=== PATIENT | male | born 1955 | race African-American/Black ===

== ENCOUNTER 2023-12-11 11:46 | Inpatient (IN) | payer MEDICARE ==
[~2023-12-11] VITALS: Ht 180.3 cm; Wt 63.5 kg
[~2023-12-11 11:46] MED LIST: AMLO10TA80 PO; APIX5TAB PO; ATOR10TA69 PO; CEPH250T MT; DOXY150T5 MT; HYDR-4135 PO; LOSA100T33 PO; SEVE800T8 PO
[2023-12-11] MEDS ORDERED: ALBUTEROL (0.083%) 2.5MG/3ML NEB HHN STA (12:07)
[2023-12-11] MEDS ORDERED: IPRATROPIUM BROMIDE (0.02%) 0.5MG/2.5ML NEB HHN STA (12:07)
[2023-12-11] MEDS ORDERED: PREDNISONE 20MG TABLET PO STA (12:07)
[2023-12-11] MEDS ORDERED: MAGNESIUM 2 G PREMIX 50 ML IV ONE (12:15)
[2023-12-11 13:02] LABS: HEMATOCRIT. 29.1 % (42.0-52.0); HEMOGLOBIN. 9.3 g/dL (14.0-18.0); MEAN CORPUSCULAR HEMOGLOBIN 29.3 pg (28.0-32.0); MEAN CORPUSCULAR VOLUME 91.7 fL (80.0-94.0); MEAN PLATELET VOLUME 8.2 fl (7.4-10.4); PLATELET 219 x1000/uL (130-400); RED BLOOD CELL COUNT 3.17 mill/uL (4.7-6.1); RED CELL DISTRIBUTION WIDTH 21.9 % (11.6-14.6); WHITE BLOOD COUNT 11.3 x1000/uL (4.5-11.0)
[2023-12-11 13:03] LABS: DIFFERENTIAL COMMENT 1
[2023-12-11 13:16] LABS: ALANINE AMINOTRANSFERASE 13 IU/L (10-49); ALBUMIN 3.3 g/dL (3.2-4.8); ASPARTATE AMINOTRANSFERASE 30 IU/L (<34); BILIRUBIN TOTAL 0.5 mg/dL (0.1-1.0); CALCIUM 9.5 mg/dL (8.7-10.4); CARBON DIOXIDE 31 mEq/L (21-32); CHLORIDE 92 mEq/L (98-107); GLUCOSE 122 mg/dL (70-105); POTASSIUM 3.7 mEq/L (3.5-5.1); PROTEIN TOTAL 6.9 g/dL (6.0-8.3); SODIUM 132 mEq/L (136-145); UREA NITROGEN BLOOD 30 mg/dL (9-23)
[2023-12-11 13:22] LABS: CREATININE 4.6 mg/dL (0.6-1.3)
[2023-12-11 13:23] LABS: TROPONIN I HIGH SENSITIVITY 101 ng/L (3.0-53)
[2023-12-11] MEDS ORDERED: AZITHROMYCIN 500MG/250ML 250 ML IV SCH (13:45)
[2023-12-11] MEDS ORDERED: CEFTRIAXONE 1GM PREMIX 50 ML IV ONE (13:45)
[2023-12-11 14:43] LABS: ANISOCYTOSIS 3+; PLATELET ESTIMATE NORMAL
[2023-12-11 15:48] LABS: TROPONIN I HIGH SENSITIVITY 113 ng/L (3.0-53)
[2023-12-11] MEDS ORDERED: MAGNESIUM/ALUMINUM HYDROXIDE/SIMETHICONE 30ML UDC PO PRN (17:30)
[2023-12-11] MEDS ORDERED: ONDANSETRON HCL 4MG/2ML INJ IV PRN (17:30)
[2023-12-11] MEDS ORDERED: GUAIFENESIN 200MG/10ML SUGAR FREE UDC PO PRN (17:30)
[2023-12-11] MEDS ORDERED: IPRATROPIUM/ALBUTEROL 0.5-3(2.5)MG/3ML NEB HHN PRN (17:30)
[2023-12-11] MEDS ORDERED: ACETAMINOPHEN 325MG TABLET PO PRN ×2 (17:30)
[2023-12-11] MEDS ORDERED: CLONIDINE 0.1MG TABLET PO PRN (17:30)
[2023-12-11] MEDS ORDERED: DOCUSATE SODIUM 100MG CAPSULE PO PRN (17:30)
[2023-12-11 19:00] VITALS: BP 156/78; PULSE 72; RESP 18; TEMP 97.7
[2023-12-11 20:00] VITALS: BP 168/75; PULSE 83; RESP 18; TEMP 97.7
[2023-12-12] VITALS (13 sets, daily range): BP systolic 98–175; BP diastolic 46–90; PULSE 78–99; RESP 18–22; TEMP 96.8–97.9
[2023-12-12] MEDS ORDERED: FOLI0.4T6 MT (05:57)
[2023-12-12 06:23] LABS: BASOPHILS % 0.1 % (0.0-2.0); DIFFERENTIAL COMMENT 0; HEMATOCRIT. 26.6 % (42.0-52.0); LYMPHOCYTES % 7.7 % (20.0-50.0); MEAN CORPUSCULAR HEMOGLOBIN 29.8 pg (28.0-32.0); MEAN CORPUSCULAR HGB CONC 33.8 g/dL (31.0-37.0); MEAN CORPUSCULAR VOLUME 88.1 fL (80.0-94.0); MONOCYTES % 5.1 % (2.0-8.0); NEUTROPHILS % 87.1 % (40.0-76.0); PLATELET 222 x1000/uL (130-400); RED BLOOD CELL COUNT 3.02 mill/uL (4.7-6.1); RED CELL DISTRIBUTION WIDTH 21.4 % (11.6-14.6); WHITE BLOOD COUNT 8.9 x1000/uL (4.5-11.0)
[2023-12-12 06:46] LABS: CREATINE KINASE MB FRACTION 3.6 ng/mL (0.5-3.6)
[2023-12-12] MEDS: TAMSULOSIN HCL 0.4MG SR CAPSULE PO SCH (10:11)
[2023-12-12] MEDS: APIXABAN 5 MG TABLET PO SCH ×2 (10:11→17:48)
[2023-12-12] MEDS: SEVELAMER CARBONATE 800 MG TABLET PO SCH ×3 (10:11→17:48)
[2023-12-12] MEDS: METOPROLOL SUCCINATE 50MG ER TABLET PO SCH (10:11)
[2023-12-12] MEDS: AMLODIPINE 10MG TABLET PO SCH (10:12)
[2023-12-12 11:53] LABS: ALANINE AMINOTRANSFERASE 14 IU/L (10-49); ALBUMIN 3.6 g/dL (3.2-4.8); ASPARTATE AMINOTRANSFERASE 28 IU/L (<34); BILIRUBIN TOTAL 0.5 mg/dL (0.1-1.0); CALCIUM 10.1 mg/dL (8.7-10.4); CARBON DIOXIDE 26 mEq/L (21-32); CHLORIDE 91 mEq/L (98-107); CHOLESTEROL 110 mg/dL (<200); GLUCOSE 103 mg/dL (70-105); HDL CHOLESTEROL 72 mg/dL (>55); LDL CHOLESTEROL 27 mg/dL (5-100); PHOSPHORUS 4.5 mg/dL (2.5-4.9); POTASSIUM 4.2 mEq/L (3.5-5.1); PROTEIN TOTAL 6.8 g/dL (6.0-8.3); SODIUM 131 mEq/L (136-145); THYROID STIMULATING HORMONE 1.73 uIU/mL (0.55-4.78); TRIGLYCERIDE 36 mg/dL (0-150); UREA NITROGEN BLOOD 34 mg/dL (9-23)
[2023-12-12 11:55] LABS: CREATININE 5.1 mg/dL (0.6-1.3)
[2023-12-12 13:28] LABS: BASOPHILS % 0.3 % (0.0-2.0); HEMATOCRIT. 29.8 % (42.0-52.0); HEMOGLOBIN. 9.6 g/dL (14.0-18.0); LYMPHOCYTES % 10.5 % (20.0-50.0); MEAN CORPUSCULAR HGB CONC 32.2 g/dL (31.0-37.0); MEAN CORPUSCULAR VOLUME 90.1 fL (80.0-94.0); MEAN PLATELET VOLUME 8.1 fl (7.4-10.4); MONOCYTES % 7.8 % (2.0-8.0); NEUTROPHILS % 81.4 % (40.0-76.0); PLATELET 221 x1000/uL (130-400); RED BLOOD CELL COUNT 3.31 mill/uL (4.7-6.1); WHITE BLOOD COUNT 12.2 x1000/uL (4.5-11.0)
[2023-12-12 13:31] LABS: DIFFERENTIAL COMMENT 1
[2023-12-12] MEDS: HYDRALAZINE HCL 100MG TABLET PO SCH ×2 (13:31→21:22)
[2023-12-12 15:43] LABS: ALANINE AMINOTRANSFERASE 15 IU/L (10-49); ALBUMIN 3.8 g/dL (3.2-4.8); ASPARTATE AMINOTRANSFERASE 45 IU/L (<34); BILIRUBIN TOTAL 0.5 mg/dL (0.1-1.0); CALCIUM 10.1 mg/dL (8.7-10.4); CARBON DIOXIDE 24 mEq/L (21-32); CHLORIDE 90 mEq/L (98-107); GLUCOSE 90 mg/dL (70-105); POTASSIUM 4.7 mEq/L (3.5-5.1); PROTEIN TOTAL 7.2 g/dL (6.0-8.3); SODIUM 131 mEq/L (136-145); UREA NITROGEN BLOOD 34 mg/dL (9-23)
[2023-12-12 15:45] LABS: CREATININE 5.4 mg/dL (0.6-1.3)
[2023-12-12 15:47] LABS: TROPONIN I HIGH SENSITIVITY 92 ng/L (3.0-53)
[2023-12-12] MEDS ORDERED: CEFEPIME 2,000 MG in DEXT 5% WATER 100 ML IV SCH (19:45)
[2023-12-12] MEDS ORDERED: ENOXAPARIN 30MG/0.3ML SYR SUBCUT SCH (20:00)
[2023-12-12] MEDS: CEFEPIME 1,000 MG in DEXTROSE 5% WATER 50 ML IV SCH (21:00)
[2023-12-12] MEDS ORDERED: VANCOMYCIN 1.25GM PMX (XELLIA) 250 ML IV NR (21:00)
[2023-12-12] MEDS: ATORVASTATIN CALCIUM 20MG TABLET PO SCH (21:21)
[2023-12-12 21:37] LABS: BASOPHILS % 0.4 % (0.0-2.0); EOSINOPHILS % 0.1 % (0.0-5.0); HEMATOCRIT. 30.6 % (42.0-52.0); HEMOGLOBIN. 9.8 g/dL (14.0-18.0); LYMPHOCYTES % 8.4 % (20.0-50.0); MEAN CORPUSCULAR HEMOGLOBIN 29.3 pg (28.0-32.0); MEAN CORPUSCULAR HGB CONC 32.2 g/dL (31.0-37.0); MEAN CORPUSCULAR VOLUME 91.1 fL (80.0-94.0); MEAN PLATELET VOLUME 8.2 fl (7.4-10.4); MONOCYTES % 10.8 % (2.0-8.0); NEUTROPHILS % 80.3 % (40.0-76.0); PLATELET 231 x1000/uL (130-400); RED BLOOD CELL COUNT 3.36 mill/uL (4.7-6.1); RED CELL DISTRIBUTION WIDTH 21.8 % (11.6-14.6); WHITE BLOOD COUNT 14.7 x1000/uL (4.5-11.0)
[2023-12-12 21:50] LABS: ALANINE AMINOTRANSFERASE 16 IU/L (10-49); ALBUMIN 3.7 g/dL (3.2-4.8); ASPARTATE AMINOTRANSFERASE 32 IU/L (<34); BILIRUBIN TOTAL 0.7 mg/dL (0.1-1.0); CALCIUM 9.8 mg/dL (8.7-10.4); CARBON DIOXIDE 31 mEq/L (21-32); CHLORIDE 93 mEq/L (98-107); CREATININE 4.3 mg/dL (0.6-1.3); GLUCOSE 82 mg/dL (70-105); POTASSIUM 4.2 mEq/L (3.5-5.1); PROTEIN TOTAL 7.1 g/dL (6.0-8.3); SODIUM 134 mEq/L (136-145); UREA NITROGEN BLOOD 24 mg/dL (9-23)
[2023-12-12] MEDS: FAMOTIDINE 20MG/2ML VIAL IV SCH (21:51)
[2023-12-12 22:30] LABS: HEPATITIS A AB IGM NEGATIVE (Negative); HEPATITIS B CORE AB IGM NEGATIVE (Negative); HEPATITIS B SURFACE ANTIGEN NEGATIVE (Negative)
[2023-12-12 22:53] LABS: HEPATITIS C AB REACTIVE (Pos) (Negative)
[2023-12-13] VITALS: BP 145/64; PULSE 80; RESP 22; TEMP 97.3
[2023-12-13 04:00] VITALS: BP 140/62; PULSE 79; RESP 20; TEMP 97.2
[2023-12-13] MEDS: HYDRALAZINE HCL 100MG TABLET PO SCH ×3 (05:43→21:52)
[2023-12-13 08:00] VITALS: BP 159/83; PULSE 68; RESP 18; TEMP 97.1
[2023-12-13] MEDS: FAMOTIDINE 20MG/2ML VIAL IV SCH (09:00)
[2023-12-13] MEDS: APIXABAN 5 MG TABLET PO SCH ×2 (09:07→17:54)
[2023-12-13] MEDS: SEVELAMER CARBONATE 800 MG TABLET PO SCH ×3 (09:07→17:54)
[2023-12-13] MEDS: METOPROLOL SUCCINATE 50MG ER TABLET PO SCH (09:07)
[2023-12-13] MEDS: TAMSULOSIN HCL 0.4MG SR CAPSULE PO SCH (09:08)
[2023-12-13] MEDS: AMLODIPINE 10MG TABLET PO SCH (09:08)
[2023-12-13 12:00] VITALS: BP 153/88; PULSE 100; RESP 18; TEMP 97
[2023-12-13 20:45] VITALS: BP 133/69; PULSE 76; RESP 20; TEMP 96.6
[2023-12-13] MEDS: CEFEPIME 1,000 MG in DEXTROSE 5% WATER 50 ML IV SCH (21:51)
[2023-12-13] MEDS: ATORVASTATIN CALCIUM 20MG TABLET PO SCH (21:51)
[2023-12-14] VITALS (12 sets, daily range): BP systolic 86–195; BP diastolic 58–88; PULSE 68–107; RESP 16–20; TEMP 96.8–98.6
[2023-12-14 06:24] LABS: HEMATOCRIT. 28.6 % (42.0-52.0); HEMOGLOBIN. 9.5 g/dL (14.0-18.0); MEAN CORPUSCULAR HEMOGLOBIN 29.7 pg (28.0-32.0); MEAN CORPUSCULAR HGB CONC 33.3 g/dL (31.0-37.0); MEAN CORPUSCULAR VOLUME 89.2 fL (80.0-94.0); MEAN PLATELET VOLUME 7.8 fl (7.4-10.4); PLATELET 206 x1000/uL (130-400); RED BLOOD CELL COUNT 3.21 mill/uL (4.7-6.1); RED CELL DISTRIBUTION WIDTH 21.5 % (11.6-14.6); WHITE BLOOD COUNT 12.3 x1000/uL (4.5-11.0)
[2023-12-14] MEDS: HYDRALAZINE HCL 100MG TABLET PO SCH ×3 (06:28→21:19)
[2023-12-14 06:32] LABS: ALANINE AMINOTRANSFERASE 18 IU/L (10-49); ALBUMIN 3.6 g/dL (3.2-4.8); ASPARTATE AMINOTRANSFERASE 25 IU/L (<34); BILIRUBIN TOTAL 0.5 mg/dL (0.1-1.0); CARBON DIOXIDE 30 mEq/L (21-32); CHLORIDE 96 mEq/L (98-107); GLUCOSE 78 mg/dL (70-105); PHOSPHORUS 2.7 mg/dL (2.5-4.9); PREALBUMIN 21.2 mg/dl (10.0-40.0); PROTEIN TOTAL 6.7 g/dL (6.0-8.3); SODIUM 136 mEq/L (136-145); UREA NITROGEN BLOOD 37 mg/dL (9-23)
[2023-12-14 07:03] LABS: DIFFERENTIAL COMMENT 1
[2023-12-14] MEDS: SEVELAMER CARBONATE 800 MG TABLET PO SCH ×3 (08:56→17:32)
[2023-12-14] MEDS: TAMSULOSIN HCL 0.4MG SR CAPSULE PO SCH (08:56)
[2023-12-14] MEDS: METOPROLOL SUCCINATE 50MG ER TABLET PO SCH (08:57)
[2023-12-14] MEDS: APIXABAN 5 MG TABLET PO SCH ×2 (08:57→17:32)
[2023-12-14] MEDS: AMLODIPINE 10MG TABLET PO SCH (08:57)
[2023-12-14] MEDS: FAMOTIDINE 20MG/2ML VIAL IV SCH (09:20)
[2023-12-14 13:53] LABS: ANISOCYTOSIS 2+; PLATELET ESTIMATE NORMAL
[2023-12-14] MEDS ORDERED: VANCOMYCIN 1G PREMIX 200 ML IV NR (14:00)
[2023-12-14] MEDS: ATORVASTATIN CALCIUM 20MG TABLET PO SCH (21:16)
[2023-12-14] MEDS: CEFEPIME 1,000 MG in DEXTROSE 5% WATER 50 ML IV SCH (21:19)
[2023-12-15] VITALS: BP 151/79; PULSE 98; RESP 19; TEMP 97.7
[2023-12-15 04:00] VITALS: BP 164/90; PULSE 100; RESP 20; TEMP 98.2
[2023-12-15] MEDS: HYDRALAZINE HCL 100MG TABLET PO SCH ×3 (06:25→21:26)
[2023-12-15 06:55] LABS: ALANINE AMINOTRANSFERASE 19 IU/L (10-49); ALBUMIN 3.6 g/dL (3.2-4.8); ASPARTATE AMINOTRANSFERASE 36 IU/L (<34); BASOPHILS % 1.6 % (0.0-2.0); BILIRUBIN TOTAL 0.5 mg/dL (0.1-1.0); CARBON DIOXIDE 30 mEq/L (21-32); CHLORIDE 100 mEq/L (98-107); EOSINOPHILS % 0.3 % (0.0-5.0); GLUCOSE 68 mg/dL (70-105); HEMOGLOBIN. 9.5 g/dL (14.0-18.0); LYMPHOCYTES % 12.9 % (20.0-50.0); MEAN CORPUSCULAR HEMOGLOBIN 29.7 pg (28.0-32.0); MEAN CORPUSCULAR HGB CONC 32.6 g/dL (31.0-37.0); MEAN PLATELET VOLUME 8.1 fl (7.4-10.4); MONOCYTES % 11.3 % (2.0-8.0); NEUTROPHILS % 73.9 % (40.0-76.0); PHOSPHORUS 2.7 mg/dL (2.5-4.9); PLATELET 210 x1000/uL (130-400); POTASSIUM 4.5 mEq/L (3.5-5.1); PROTEIN TOTAL 7.2 g/dL (6.0-8.3); RED BLOOD CELL COUNT 3.19 mill/uL (4.7-6.1); RED CELL DISTRIBUTION WIDTH 22.5 % (11.6-14.6); SODIUM 139 mEq/L (136-145); UREA NITROGEN BLOOD 33 mg/dL (9-23); WHITE BLOOD COUNT 9.6 x1000/uL (4.5-11.0)
[2023-12-15 07:01] LABS: CREATININE 5.2 mg/dL (0.6-1.3)
[2023-12-15 07:12] LABS: DIFFERENTIAL COMMENT 1
[2023-12-15 07:57] VITALS: BP 120/76; PULSE 100; RESP 18; TEMP 97.7
[2023-12-15] MEDS: SEVELAMER CARBONATE 800 MG TABLET PO SCH ×3 (08:16→17:22)
[2023-12-15] MEDS: TAMSULOSIN HCL 0.4MG SR CAPSULE PO SCH (08:16)
[2023-12-15] MEDS: APIXABAN 5 MG TABLET PO SCH ×2 (08:16→17:22)
[2023-12-15] MEDS: METOPROLOL SUCCINATE 50MG ER TABLET PO SCH (08:16)
[2023-12-15] MEDS: FAMOTIDINE 20MG/2ML VIAL IV SCH (08:16)
[2023-12-15] MEDS: AMLODIPINE 10MG TABLET PO SCH (08:17)
[2023-12-15] MEDS ORDERED: DEXTROSE 50% WATER 50ML SYRINGE IV PRN (08:45)
[2023-12-15 11:53] VITALS: BP 103/45; PULSE 87; RESP 19; TEMP 97.3
[2023-12-15 15:59] VITALS: BP 113/61; PULSE 89; RESP 18; TEMP 97.6
[2023-12-15 20:00] VITALS: BP 116/66; PULSE 84; RESP 19; TEMP 98
[2023-12-15 20:43] LABS: BASOPHILS % 1.6 % (0.0-2.0); EOSINOPHILS % 0.5 % (0.0-5.0); HEMATOCRIT. 26.4 % (42.0-52.0); HEMOGLOBIN. 8.7 g/dL (14.0-18.0); LYMPHOCYTES % 14.1 % (20.0-50.0); MEAN CORPUSCULAR HEMOGLOBIN 29.7 pg (28.0-32.0); MEAN CORPUSCULAR VOLUME 89.9 fL (80.0-94.0); MEAN PLATELET VOLUME 7.9 fl (7.4-10.4); MONOCYTES % 10.7 % (2.0-8.0); NEUTROPHILS % 73.1 % (40.0-76.0); PLATELET 176 x1000/uL (130-400); RED BLOOD CELL COUNT 2.94 mill/uL (4.7-6.1); RED CELL DISTRIBUTION WIDTH 20.5 % (11.6-14.6); WHITE BLOOD COUNT 10.4 x1000/uL (4.5-11.0)
[2023-12-15 20:53] LABS: POTASSIUM 4.5 mEq/L (3.5-5.1)
[2023-12-15] MEDS: CEFEPIME 1,000 MG in DEXTROSE 5% WATER 50 ML IV SCH (21:24)
[2023-12-15] MEDS: ATORVASTATIN CALCIUM 20MG TABLET PO SCH (21:24)
[2023-12-16] VITALS (17 sets, daily range): BP systolic 87–142; BP diastolic 41–84; PULSE 73–96; RESP 16–19; TEMP 97.6–98.4; O2SAT 94
[2023-12-16] MEDS: HYDRALAZINE HCL 100MG TABLET PO SCH ×2 (06:35→14:00)
[2023-12-16] MEDS ORDERED: FAMOTIDINE 20MG TABLET PO SCH (09:00)
[2023-12-16] MEDS: AMLODIPINE 10MG TABLET PO SCH (11:49)
[2023-12-16] MEDS: METOPROLOL SUCCINATE 50MG ER TABLET PO SCH (11:49)
[2023-12-16] MEDS: APIXABAN 5 MG TABLET PO SCH (11:49)
[2023-12-16] MEDS: TAMSULOSIN HCL 0.4MG SR CAPSULE PO SCH (11:59)
[2023-12-16] MEDS: SEVELAMER CARBONATE 800 MG TABLET PO SCH ×2 (11:59→13:56)
[2023-12-17] MEDS ORDERED: FAMOTIDINE 20MG TABLET PO SCH (09:00)
== END 2023-12-16 17:55 | DRG 853 ==
LOC: ER 11:46 → 7WST 19:40
PROVIDERS: ADMIT Internal Medicine; ATTEND Internal Medicine
PROC: 5A1D70Z Performance of Urinary Filtration, Intermittent, Less than 6 Hours Per Day (ICD-10-PCS; 2023-12-12)
PROC: 0JB70ZZ Excision of Back Subcutaneous Tissue and Fascia, Open Approach (ICD-10-PCS; principal; 2023-12-13)
PROC: 5A1D70Z Performance of Urinary Filtration, Intermittent, Less than 6 Hours Per Day (ICD-10-PCS; 2023-12-14)
PROC: 5A1D70Z Performance of Urinary Filtration, Intermittent, Less than 6 Hours Per Day (ICD-10-PCS; 2023-12-16)
DX: A41.9 Sepsis, unspecified organism (principal); L89.153 Pressure ulcer of sacral region, stage 3; N18.6 End stage renal disease; I12.0 Hypertensive chronic kidney disease with stage 5 chronic kidney disease or end stage renal disease; E87.1 Hypo-osmolality and hyponatremia; E46 Unspecified protein-calorie malnutrition; G93.40 Encephalopathy, unspecified; Z68.1 Body mass index [BMI] 19.9 or less, adult; F03.90 Unspecified dementia, unspecified severity, without behavioral disturbance, psychotic disturbance, mood disturbance, and anxiety; I48.91 Unspecified atrial fibrillation; I25.10 Atherosclerotic heart disease of native coronary artery without angina pectoris; D63.1 Anemia in chronic kidney disease; B19.20 Unspecified viral hepatitis C without hepatic coma; J44.89 Other specified chronic obstructive pulmonary disease; Z99.2 Dependence on renal dialysis; Z87.01 Personal history of pneumonia (recurrent); Z74.01 Bed confinement status; Z79.899 Other long term (current) drug therapy
CPT/HCPCS: 36415; 71045; 80048; 80053; 80061; 80202; 82550; 82553; 82962; 83605; 83735; 83880; 84100; 84134; 84145; 84443; 84484; 85025; 86705; 86709; 87070; 87077; 87106; 87186; 87340; 90935; 93005; 93306; 93970; 97162; 97166; 97530; 97535; 99285; J0692; J3370; J3475; J3490; J7030; J7060; J7512